=== PATIENT | male | born 1960 ===

== ENCOUNTER 2017-11-19 09:07 | Emergency (ER) | payer OTHER ==
[~2017-11-19] VITALS: Ht 172.7 cm; Wt 86.2 kg
== END 2017-11-19 14:55 | disposition home or self-care (01) ==
LOC: ER 09:07
DX: L27.0 Generalized skin eruption due to drugs and medicaments taken internally (principal); T50.995A Adverse effect of other drugs, medicaments and biological substances, initial encounter; L03.115 Cellulitis of right lower limb